=== PATIENT | female | born 1985 ===

== ENCOUNTER 2018-09-27 20:29 | Emergency (ER) | payer SELFPAY ==
[~2018-09-27] VITALS: Ht 160 cm; Wt 112.0 kg
[2018-09-27 20:50] VITALS: BP 126/81
== END 2018-09-27 21:27 | disposition home or self-care (01) ==
LOC: ER 20:29
DX: S01.81XD Laceration without foreign body of other part of head, subsequent encounter (principal); F12.10 Cannabis abuse, uncomplicated; F41.9 Anxiety disorder, unspecified; X58.XXXD Exposure to other specified factors, subsequent encounter
CPT/HCPCS: 99281